=== PATIENT | female | born 1950 | race Two or more races ===

== ENCOUNTER 2024-07-23 14:19 | Emergency (ER) | payer OTHER ==
[~2024-07-23] VITALS: Ht 152.4 cm; Wt 61.2 kg
[2024-07-23 16:24] LABS: BASO % 0.3 % (0.1-1.2); HEMATOCRIT 35.1 % (34.1-44.9); HEMOGLOBIN 11.4 g/dL (11.2-15.7); LYMPH # 2.03 (1.18-3.74); MONO # 0.44 (0.24-0.82); NEUT # 0.53 (1.56-6.13); NEUT % 17.5 % (34.0-71.1); PLATELET COUNT 237 K/uL (163-369); RED BLOOD COUNT 4.39 M/uL (3.93-5.22); RED CELL DISTRIBUTION WIDTH 14.7 % (11.6-14.4)
[2024-07-23 16:42] LABS: MONO % 14.5 % (4.7-12.5)
[2024-07-23] MEDS ORDERED: KETOROLAC TROMETHAMINE 30 MG VIAL IM STA (17:11)
[2024-07-23] MEDS ORDERED: KETOROLAC TROMETHAMINE 30 MG VIAL ONE (17:15)
== END 2024-07-23 17:26 | disposition home or self-care (01) ==
LOC: ER 14:40
PROVIDERS: General Practice
DX: J10.1 Influenza due to other identified influenza virus with other respiratory manifestations (principal); I10 Essential (primary) hypertension; E03.8 Other specified hypothyroidism